=== PATIENT | male | born 1970 | race Caucasian/White ===

== ENCOUNTER 2022-08-14 08:00 | Outpatient (CLI) | payer OTHER, SELFPAY | END 2022-08-14 08:01 | disposition home or self-care (01) | LOC: NFLDREF 08-15 09:30 | PROVIDERS: PCP Family Medicine; Referring Provider Family Medicine; Visit Provider Family Medicine | DX: Z00.00 Encounter for general adult medical examination without abnormal findings (principal); Z13.6 Encounter for screening for cardiovascular disorders; Z12.5 Encounter for screening for malignant neoplasm of prostate | CPT/HCPCS: 80048; 80061; 84153 ==

== ENCOUNTER 2022-08-28 08:32 | Outpatient (CLI) | payer OTHER, SELFPAY ==
--- NOTE | 2022-08-28 08:51 | W.ANESCHARGE ---
Anesthesia Charges Start Date/Time Anesthesia Start Date: 08/28/22 Anesthesia Start Time: 09:55 Stop Date/Time Anesthesia Stop Date: 08/28/22 Anesthesia Stop Time: 10:36
--- NOTE | 2022-08-28 10:38 | W.ANESCHARGE ---
Anesthesia Charges Start Date/Time Anesthesia Start Date: 08/28/22 Anesthesia Start Time: 09:55 Stop Date/Time Anesthesia Stop Date: 08/28/22 Anesthesia Stop Time: 10:36
== END 2022-08-28 08:33 | disposition home or self-care (01) ==
LOC: OP CLINIC 08:32
PROVIDERS: PCP Family Medicine; Visit Provider Surgery
DX: Z12.11 Encounter for screening for malignant neoplasm of colon (principal); K63.5 Polyp of colon; K57.30 Diverticulosis of large intestine without perforation or abscess without bleeding
CPT/HCPCS: 00811; 45380; 88305; J2704

== ENCOUNTER 2022-11-20 06:07 | Day surgery (SDC) | payer OTHER, SELFPAY ==
[2022-11-20] VITALS (12 sets, daily range): BP systolic 98–139; BP diastolic 70–98; PULSE 50–66; RESP 15–20; TEMP 36.3–36.7; O2SAT 95–98; BMI 24.5
[2022-11-20] MEDS: SODIUM CHLORIDE 0.9 % (FLUSH) 10 ML SYRINGE IVF (06:57)
[2022-11-20] MEDS: LACTATED RINGERS 1000 ML 1,000 ML 100 ML IV ×2 (06:57→07:52)
[2022-11-20] MEDS: CEFAZOLIN 1 GM inj IVP (07:52)
--- NOTE | 2022-11-20 08:05 | W.ANESCHARGE ---
Anesthesia Charges Start Date/Time Anesthesia Start Date: 11/20/22 Anesthesia Start Time: 07:40 Stop Date/Time Anesthesia Stop Date: 11/20/22 Anesthesia Stop Time: 09:01
[2022-11-20] MEDS: BUPIVACAINE 0.25% 30 ML INJECTION (08:30)
--- NOTE | 2022-11-20 08:52 | P.GSOP_ITS ---
Operative Note Pre-op diagnosis: Right inguinal hernia Post-op diagnosis: same Type of Procedure: Laparoscopic right inguinal hernia repair with mesh Indications: the patient is a 52-year-old male with a right inguinal hernia. This become increasingly symptomatic for him with activity. After discussion of options he elected to proceed with repair. Procedure Description: After discussing the risks and benefits of the procedure, the patient signed informed consent.? The operative site was marked and the patient was brought to the operating room and placed on the operating table in supine position.? Care was taken to pad the patient's pressure points.?? The patient was then Intubated by anesthesia.?? The operative site was then prepped and draped in the usual sterile fashion.? A time-out was then performed. A curvilinear incision was made below the umbilicus. Dissection was carried down to subcutaneous tissue until the anterior rectus fascia was encountered. This was incised off the midline on the right. The rectus muscle fibers were then retracted exposing the posterior fascia. A port with a dissecting balloon was then introduced into the pre-preperitoneal space. This was inflated under direct vision. The balloon was deflated, removed, and a 10 mm working port was placed. The space was insufflated and a 10 mm 30-degree scope was then advanced into the space. Two 5 mm ports were placed in the midline under direct vision. Dissection began on the [left/right] side. Refugio's ligament and the pubic bone were expo sed medially. Following this, dissection was carried out laterally. A direct defect was noted. This was reduced. The peritoneum was dissected free from the cord structures using a combination of sharp and blunt dissection. There was no cord lipoma noted in the inguinal canal. Once the sac was completely reduced, a piece of large Bard 3DMax mesh for the appropriate side was placed into the abdomen. This was positioned with the marker pointed medially. A Tacker was used to attach the mesh medially at Refugio's ligament, on the anterior abdominal wall and 1 tack laterally with care to avoid the epigastric vessels and stay above the inguinal ligament. Once this was completed the preperitoneal space desufflated under direct vision to ensure the mesh laid flat. 10 mL of 0.5% Marcaine were instilled into the preperitoneal space through a port. The ports were removed. The fascia from the infraumbilical port was closed with 0 Vicryl. The skin incisions were closed with absorbable subcuticular suture. Sterile dressings were then applied. The scrotum was examined to ensure that both testicles were down. Instrument sponge and needle counts were correct at the end of the case. ? The patient was then woken and transported to the recovery area in stable condition. ? The patient tolerated the procedure well. Findings: direct right inguinal hernia Implants: large Bard 3DMax mesh Anesthesia: GETA Surgeon: Carla Pelaez MD Estimated blood loss (mL): 5 Condition: stable Disposition: PACU Date of procedure: 11/20/22
--- NOTE | 2022-11-20 09:01 | W.ANESCHARGE ---
Anesthesia Charges Start Date/Time Anesthesia Start Date: 11/20/22 Anesthesia Start Time: 07:40 Stop Date/Time Anesthesia Stop Date: 11/20/22 Anesthesia Stop Time: 09:01
--- NOTE | 2022-11-20 09:33 | SUR.PHASEI ---
patient met discharge criteria per anesthesia
== END 2022-11-20 11:00 | disposition home or self-care (01) ==
PROVIDERS: PCP Family Medicine; Visit Provider Surgery
PROC: (CPT 49650; principal; 2022-11-20 07:30)
DX: K40.90 Unilateral inguinal hernia, without obstruction or gangrene, not specified as recurrent (principal)
CPT/HCPCS: 49650; 00830; 00840; 00860; C1781; J0330; J0665; J0690; J1100; J2250; J2405; J2704; J3010; J3490; J7120

== ENCOUNTER 2024-01-21 08:35 | Outpatient (CLI) | payer OTHER, SELFPAY ==
--- OUTSIDE RECORDS SUMMARY | 2024-01-22 19:33 | XMS_ITS | Encounter Summary ---
Author Organization [facility] Address [address] [place], [place] [id number] Phone [email or web address] [email or web address] Care Team Providers Care Seed Potato Arranger Name Role Phone Unavailable Primary Care Provider Unavailabl e Encounter Details Date Type Department Care Team (Late st Contact Info) Description 01/08/2024 8:30 AM [facility] Immunization [address] [phone] Estrellita Mcclendon RN [address] [place] [address], [address] [address] Encounter for immunization (Primary Dx) Social History Tobacco Use Types Packs/Day Years Used Date Smoking Tobacco: Never Assessed Intimate Partner Violence Answer Date R ecorded Insults You Not on file 11/12/2021 Threatens You Not on file 11/12/2021 Screams at You Not on file 11/12/2021 Physically Hurt Not on file 11/12/2021 Intimate Partner Violence Score Not on file 11/12/2021 Stress Answer Date Recorded Stress in your Life Not on file 12/26/2023 Dealing with Stress 3 12/26/2023 Sex and Gender Information Value Date Recorded Sex Assigned at Not on file Legal Sex Male 12:25 AM CDT Gender Identity Not on file Sexual Orientation Not on file documented as of this encounter Plan of Treatment Not on file documented as of this encounter Visit Diagnoses Diagnosis Encounter for immunization- Primary documented in this encounter
--- OUTSIDE RECORDS SUMMARY | 2024-01-22 19:33 | XMS_ITS | Encounter Summary ---
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
--- OUTSIDE RECORDS SUMMARY | 2024-01-22 19:33 | XMS_ITS | Clinical Summary ---
Author Organization 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 [address] [phone] Estrellita Mcclendon RN Encounter for vaccination (Primary Dx) 01/08/2024 8:30 AM [facility] [address] [place] [address] Estrellita Mcclendon RN Encounter for immunization (Primary Dx) from Last 3 Months Immunizations Name Administration Dates Next Due COVID-19 (Pfizer Bivalent 12 yrs+) (CVX-300) COVID-19 Moderna 12yrs+ (Sea brandon) SPIKEVAX mRNA 50 mcg/0.5 mL (CVX-312) 01/08/2024 Influenza (Flucelvax) MDCK, PF, quad (CVX-171) 1 Influenza (Flucelvax) PFS (6 mos+) trivalent, MDCK (CVX-153) 01/08/2024 Social History Tobacco Use Types Packs/Day Years [...] on file Sexual Orientation Not on file Plan of Treatment Health Maintenance Due Date Last Done Comments Dental Cleaning/Exam 1970 HIV Screening 1970 Hepatitis C Screening 1971 Annual Preventive Exam 09/06/1989 Hep B Infection Screening - Surface Antigen 09/06/1989 Hepatitis B Immunization (1 of 3 - 19+ 3-dose series) 09/06/1990 Colorectal Cancer Screening 09/06/2001 Zoster Immunization (1 of 2) 09/06/2021 Tetanus (Tdap or Td) Immunization 07/31/2032 07/31/2022 Covid-19 Immunization Completed 01/08/2024 , 12/13/2021, 06/30/2020 Influenza Immunization Completed , 12/01/2021 HIB Immunization Aged Out No longer e ligible based on patient's age to complete this topic HPV Immunization Aged Out No longer e ligible based on patient's age to complete this topic Hepatitis A Immunization Aged Out No longer eligible based on patient's age to complete this topic Pneumococcal: Ped (0 to 5 Yrs) and At-Risk Member (6 to 64 Yrs) Aged Out No longer eligible b ased on patient's age to complete this topic Polio Immunization Aged Out No longer eligible based on patient's age to complete this [place] [address] OPT OUT NO COPAY NB
== END 2024-01-21 08:36 | disposition home or self-care (01) ==
LOC: NFLDREF 01-22 19:31
PROVIDERS: PCP Family Medicine; Referring Provider Family Medicine; Visit Provider Family Medicine
DX: R79.89 Other specified abnormal findings of blood chemistry (principal); Z12.5 Encounter for screening for malignant neoplasm of prostate; Z13.0 Encounter for screening for diseases of the blood and blood-forming organs and certain disorders involving the immune mechanism; Z13.6 Encounter for screening for cardiovascular disorders
CPT/HCPCS: 80053; 80061; G0103

== ENCOUNTER 2024-02-29 08:00 | Outpatient (CLI) | payer OTHER, SELFPAY | END 2024-02-29 08:01 | disposition home or self-care (01) | LOC: NFLDREF 03-08 16:47 | PROVIDERS: PCP Family Medicine; Referring Provider Family Medicine; Visit Provider Family Medicine | DX: R79.89 Other specified abnormal findings of blood chemistry (principal) | CPT/HCPCS: 80048 ==